=== PATIENT | female | born 2000 | race Caucasian/White ===

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

== ENCOUNTER 2020-07-23 10:39 | Emergency (ER) | payer MEDICAID ==
[~2020-07-23] VITALS: Ht 162.6 cm; Wt 53.6 kg
[2020-07-23 10:45] VITALS: BP 121/79; TEMP 97.7
[2020-07-23] MEDS ORDERED: CELEXA 20MG20 MG/TAB PO (11:35)
[2020-07-23] MEDS ORDERED: LESSINA 28 0.021 TAB PO (11:36)
[2020-07-23 12:04] LABS: BASO # 0.1 (0.0-0.2); BASO % 0.3 % (0.0-2.0); EOS # 0.2 (0.0-0.7); EOS % 1.4 % (0-4.0); GRAN # 12.8 (1.4-6.5); GRAN % 82.6 % (42.2-75.2); HEMOGLOBIN 12.5 g/dl (12.5-16.0); LYMPH # 1.7 (1.2-3.4); LYMPH % 10.6 % (20.0-51.0); MEAN CELL VOLUME 86 fl (80.0-100.0); MEAN CORPUSCULAR HEMOGLOBIN 29 pg (27.0-31.0); MEAN CORPUSCULAR HGB CONC 34 g/dl (33.0-37.0); MEAN PLATELET VOLUME 9.1 fl (7.4-10.4); MONO # 0.7 (0.1-0.6); MONO % 4.6 % (1.7-9.3); PLATELET COUNT 273 K/mm3 (130-400); RED BLOOD COUNT 4.27 M/mm3 (4.10-5.30); REDCELL DISTRIBUTION WIDTH-CV 12.4 % (11.5-14.5)
[2020-07-23 12:05] LABS: HEMATOCRIT 36.7 % (37.0-47.0)
[2020-07-23 12:23] LABS: ALBUMIN 3.9 gm/dL (3.5-5.0); BILIRUBIN,TOTAL 0.5 mg/dL (0.0-1.0); C-REACTIVE PROTEIN 2.4 mg/dL (0.0-0.9); CALCIUM 8.8 mg/dL (8.4-10.2); CREATININE, serum 0.62 (0.52-1.25); POTASSIUM 4.1 mmol/L (3.4-5.0)
[2020-07-23 12:26] LABS: MONOSCREEN NEGATIVE
[2020-07-23 13:45] LABS: STREP SCREEN NEGATIVE
[2020-07-23] MEDS ORDERED: DECADRON6 MG PO (15:37)
[2020-07-23] MEDS ORDERED: AMOXICILLIN 50500 MG PO (15:37)
[2020-07-23 15:47] VITALS: PULSE 98
== END 2020-07-23 15:47 | disposition home or self-care (01) ==
LOC: COL.ER 10:39
PROVIDERS: Emergency Medicine; Nurse Practitioner
DX: J02.9 Acute pharyngitis, unspecified (principal); Z32.02 Encounter for pregnancy test, result negative; Z23 Encounter for immunization
CPT/HCPCS: Q9967